=== PATIENT | female | born 1995 | race Two or more races ===

== ENCOUNTER 2016-10-23 21:08 | Emergency (ER) | payer OTHER ==
[2016-10-23 21:19] VITALS: BP 146/59; PULSE 86; TEMP 97.9; BMI 48.9
--- NOTE | 2016-10-23 21:50 | PDOC ---
History of Present Illness - General Chief Complaint: Pain Stated Complaint: ABD PAIN Time Seen by Provider: 10/23/16 21:32 History Source: Patient Exam Limitations: No Limitations - History of Present Illness Initial Comments: 10/23/16 21:49 Patient is a 20-year-old female with h/o GERD, chronic back pain here with complaints of right lower quadrant abdominal pain 2 months. Pain has been intermittent crampy pain but today has been constant 10/15 assoc with nausea, no vomiting. States pain is worse with the onset of urination and she is feeling bloated. LMP 10/20/16 but pain does not feel like menstrual cramping. Had a normal bm today No h/o kidney stone. No fever, chills, constipation, diarrhea , PMHX: as above ALL: NKDA GENERAL/CONSTITUTIONAL: [No fever or chills. No weakness. No weight change.] HEAD, EYES, EARS, NOSE AND THROAT: [No change in vision. No ear pain or discharge. No sore throat.] CARDIOVASCULAR: [No chest pain or shortness of breath.] RESPIRATORY: [No cough, wheezing, or hemoptysis.] GASTROINTESTINAL: [No nausea, vomiting, diarrhea or constipation. No rectal bleeding.] GENITOURINARY: [No dysuria, frequency, or change in urination.] MUSCULOSKELETAL: [No joint or muscle swelling or pain. No neck or back pain.] SKIN AND BREASTS: [No rash or easy bruising.] NEUROLOGIC: [No headache, vertigo, loss of consciousness, or loss of sensation.] PSYCHIATRIC: [No depression or anxiety.] ENDOCRINE: [No increased thirst. No abnormal weight change.] HEMATOLOGIC/LYMPHATIC: [No anemia, easy bleeding, or history of blood clots.] ALLERGIC/IMMUNOLOGIC: [No hives or skin allergy. No latex allergy.] GENERAL: [The patient is awake, alert, and fully oriented, in mild distress.] HEAD: [Normal with no signs of trauma.] EYES: [Pupils equal, round and reactive to light, extraocular movements intact, sclera anicteric, conjunctiva clear.] ENT: [Ears normal, nares patent, oropharynx clear without exudates. Moist mucous membranes.] NECK: [Normal range of motion, supple without lymphadenopathy, JVD, or masses.] LUNGS: [Breath sounds equal, clear to auscultation bilaterally. No wheezes, and no crackles.] HEART: [Regular rate and rhythm, normal S1 and S2 without murmur, rub.] ABDOMEN: [Soft, (+) tendernss RLQ, normoactive bowel sounds. No guarding, no rebound. No masses, mild right CVAT] PELVIC: normal external genitalia, no discharge in vault, mild adenexal tenderness, mild cmt EXTREMITIES: [Normal range of motion, no edema. No clubbing or cyanosis. No cords, erythema, or tenderness.] NEUROLOGICAL: [Cranial nerves II through XII grossly intact. Normal speech, normal gait.] PSYCH: [Normal mood, normal affect.] SKIN: [Warm, Dry, normal turgor, no rashes or lesions noted.] Past History - Past Medical History Allergies/Adverse Reactions: Allergies Allergy/AdvReac Type Severity Reaction Status Date / Time No Known Allergies Allergy Verified 10/23/16 21:19 Other medical history: back problems - Psycho/Social/Smoking Cessation Hx Suicidal Ideation: No Smoking History: Never smoked *Physical Exam - Vital Signs Last Vital Signs Temp Pulse Resp BP Pulse Ox 97.9 F 86 18 146/59 99 10/23/16 21:16 10/23/16 21:16 10/23/16 21:16 10/23/16 21:16 10/23/16 21:16 ED Treatment Course - LABORATORY CBC & Chemistry Diagram: 10/23/16 23:00 10/23/16 22:53 - RADIOLOGY Radiology Studies Ordered: Category Date Time Status PELVIS(OTHER) US [US] Stat Ultrasound 10/23/16 21:47 Ordered TRANSVAGINAL ULTRASOUND US [US] Stat Ultrasound 10/23/16 21:47 Ordered Medical Decision Making - Medical Decision Making 10/23/16 22:08 Patient is a 20-year-old female with h/o GERD, chronic back pain here with complaints of right lower quadrant abdominal pain 2 months. ddx incl but limited to kidney stone, ovarian torsion, appendicitis not likely since the patient has been present x 2 months patient declines pain meds will get UA, US, labs Patient Name: Cheryl Camp This is a preliminary report by imaging combination operator Exam : Transabdominal and endovaginal sonogram and duplex sonography Images: 60 Clinical indication: Pelvic pain. Rule out torsion. Findings: The uterus is anteverted on transabdominal images and measures 7.5 x 3.6 x 5.8 cm. On endovaginal images the endometrium measures 6 mm in diameter within normal limits. The right ovary measures 3.3 x 1.8 x 2 cm and demonstrates normal arterial flow on color Doppler images. A subcentimeter cyst is noted in the right ovary. The left ovary measures 1.3 x 1.5 x 0.7 cm and demonstrates normal arterial flow on color Doppler images. No free fluid seen. Impression: Normal appearance of the uterus and endometrium. Right ovarian cyst. Otherwise normal appearance of the ovaries with normal vascular flow seen bilaterally. THIS DOCUMENT HAS BEEN ELECTRONICALLY SIGNED Indra Wray M.D. 10/24/2016 01: 21 ALVAREZ Downey Please call Imaging Custodial Officer [phone] ([phone]) with questions I discussed the physical exam findings, ancillary test results and final diagnoses with the patient. I answered all of the patient's questions. The patient was satisfied with the care received and felt comfortable with the discharge plan and treatment plan. The Patient agrees to follow up with the primary care physician within 24-72 hours. *DC/Admit/Observation/Transfer Diagnosis at time of Disposition: Abdominal pain Qualifiers: Abdominal location: unspecified location Qualified Code(s): R10.9 - Unspecified abdominal pain - Discharge Dispostion Disposition: HOME Condition at time of disposition: Stable - Patient Instructions Printed Discharge Instructions: DI for Abdominal Pain-Adult Additional Instructions: you must return to the ED if symptoms worsening, pain , fever, chills, nausea, vomiting, dysuria. - Post Discharge Activity Work/School Note: Back to Work
[2016-10-23 23:12] LABS: BASOPHIL 0.7 % (0-2.0); EOSINOPHIL 1.4 % (0-4.5); MCH 28.9 pg (25.7-33.7); MCHC 33.3 g/dl (32.0-36.0); MEAN CELL VOLUME 86.8 fl (80-96); MEAN PLT VOLUME 7.2 fl (7.5-11.1); NEUTROPHILS 51.1 % (42.8-82.8); PLATELET COUNT 303 K/MM3 (134-434); RDW 13.1 % (11.6-15.6); WHITE BLOOD COUNT 10.6 K/mm3 (4.0-10.0)
[2016-10-23 23:35] LABS: ALBUMIN 4.3 g/dl (3.4-5.0); ALK PHOS 85 U/L (45-117); ANION GAP 9 (8-16); BILIRUBIN,TOTAL 0.3 mg/dL (0.2-1.0); CALCIUM 9.4 mg/dL (8.5-10.1); CO2 27 mmol/L (21-32); CREATININE 1.1 mg/dL (0.55-1.02); GLUCOSE,RANDOM 100 mg/dL (74-106); SGOT/AST 21 U/L (15-37); SGPT/ALT 31 U/L (12-78); TOT PROT 7.9 g/dl (6.4-8.2)
[2016-10-23 23:43] LABS: URINE APPEARANCE CLEAR; URINE BILIRUBIN NEGATIVE (NEGATIVE); URINE BLOOD NEGATIVE (NEGATIVE); URINE COLOR YELLOW; URINE GLUCOSE (UA) NEGATIVE (NEGATIVE); URINE KETONE NEGATIVE (NEGATIVE); URINE LEUK ESTERASE NEGATIVE (NEGATIVE); URINE NITRITE NEGATIVE (NEGATIVE); URINE PROTEIN NEGATIVE (NEGATIVE); URINE UROBILINOGEN NEGATIVE E.U./dl (0.2-1.0)
== END 2016-10-24 02:54 | disposition home or self-care (01) ==
LOC: JER 21:08
DX: R10.31 Right lower quadrant pain (principal); Z87.19 Personal history of other diseases of the digestive system
CPT/HCPCS: 36415; 76830-TC; 76856-TC; 80053; 81003; 84703; 85025; 87491; 87591; 99281-25; 99284-25